=== PATIENT | male | born 1950 | race Asian ===

== ENCOUNTER 2022-11-26 07:50 | Outpatient (CLI) | payer BC ==
[~2022-11-26 07:50] MED LIST: AMLO2.5T PO; CASODEX50 MG PO; CYCL10TA35 PO; FAMOTIDINE20 MG PO; IBUPROFEN200 M1 PO; LABETALOL100 MG PO; MINO10TA PO
== END 2022-11-26 18:33 | disposition home or self-care (01) ==
LOC: US 07:50
PROVIDERS: ATTEND Specialist
DX: N28.89 Other specified disorders of kidney and ureter (principal)